=== PATIENT | male | born 2000 | race Two or more races ===

== ENCOUNTER 2025-01-20 11:21 | Emergency (ER) | payer OTHER, BC ==
[~2025-01-20] VITALS: Ht 193 cm; Wt 125.0 kg
[2025-01-20 11:31] VITALS: O2SAT 99
[2025-01-20] MEDS: LIDOCAINE HCL/EPINEPHRINE 1%-EPI 1:100,000 20ML VIAL INFIL ONE (12:03)
[2025-01-20] MEDS: TETANUS, DIPHTHERIA, PERTUSSIS VAC/PF 0.5ML (>10YR OLD) IM ONE (12:03)
[2025-01-20 13:33] VITALS: BP 150/92; PULSE 84; RESP 18; TEMP 37.1; O2SAT 100
== END 2025-01-20 14:02 | disposition home or self-care (01) ==
LOC: ER 11:59
DX: S01.01XA Laceration without foreign body of scalp, initial encounter (principal); V09.9XXA Pedestrian injured in unspecified transport accident, initial encounter; Y93.89 Activity, other specified; Y92.89 Other specified places as the place of occurrence of the external cause; Y99.8 Other external cause status
CPT/HCPCS: 90715; 12002; 90471; 99283; J2004; Z7610 ×2